=== PATIENT | female | born 1980 | race Caucasian/White ===

== ENCOUNTER → 2017-01-08 | Outpatient (CLI) | payer SELFPAY | END | disposition home or self-care (01) | LOC: LAB.O 12:49 | PROVIDERS: ATTEND Surgery | DX: R79.9 Abnormal finding of blood chemistry, unspecified (principal) ==

== ENCOUNTER 2018-10-21 05:52 | Emergency (ER) | payer SELFPAY ==
--- NOTE | 2018-10-21 06:39 | ED.PDOC ---
History of Present Illness - General Source: patient Exam Limitations: no limitations - History of Present Illness Initial Comments: the patient is a 38-year-old female presenting to the emergency room secondary to lower abdominal cramping and burning with urination. This sensation has been strongest just over the last 12 hours. She did have some mild discomfort for last couple of days. The cramping even radiates to her back when she is urinating. the worst of this pain radiates to her left flank. She does appear to have some mild left costovertebral angle tenderness. She has not had a tubal ligation. She is and sexually active. She reports that her period ended approximately 2 days ago but she's had a small amount of pink spotting since the period essentially ended which is unusual. No definite fevers. No recurrent yeast or urinary tract infections in the past. Timing/Duration: unsure Improving Factors: nothing Worsening Factors: nothing Associated Symptoms: denies symptoms <Omari Olvera - Last Filed: 10/21/18 06:36> <Dino Cardenas - Last Filed: 10/21/18 07:53> - General Time Seen by Provider: 10/21/18 06:12 - History of Present Illness Allergies/Adverse Reactions: Allergies NO KNOWN ALLERGY Allergy (Verified 10/21/18 06:41) Home Medications: Ambulatory Orders Phenazopyridine HCl [Pyridium] 200 mg PO TID #7 tab 10/21/18 levoFLOXacin [Levaquin] 500 mg PO DAILY #10 tab 10/21/18 Review of Systems - Review of Systems Constitutional: States: no symptoms reported EENTM: States: no symptoms reported Respiratory: States: no symptoms reported Cardiology: States: no symptoms reported Gastrointestinal/Abdominal: States: abdominal pain Genitourinary: States: dysuria, frequency, pain Musculoskeletal: States: back pain Skin: States: no symptoms reported Neurological: States: no symptoms reported Endocrine: States: no symptoms reported All other Systems: No Change from Baseline <Omari Olvera - Last Filed: 10/21/18 06:36> Physical Exam - Physical Exam General Appearance: Alert, No apparent distress Eye Exam: bilateral normal Ears, Nose, Throat: hearing grossly normal, normal pharynx Respiratory: no respiratory distress, no accessory muscle use Cardiovascular/Chest: normal peripheral pulses, no edema, other - regular rate Peripheral Pulses: radial,right: 2+, radial,left: 2+ Gastrointestinal/Abdominal: other - she does havesuprapubic discomfort palpation. No definite palpable mass. 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 Urinalysis and urine hCG has been ordered to start the workup. <Omari Olvera - Last Filed: 10/21/18 06:36> - Results/Orders Results/Orders: 10/21/18 06:31 URINE CULTURE W/COLONY COUNT Stat 10/21/18 06:53 KUB [RAD] Stat 10/21/18 07:08 Abdoment/Pelvis w/o Contrast [CT] Stat Laboratory Results - last 24 hr 10/21/18 10/21/18 06:31 06:31 Urine Color Yellow Urine Appearance Cloudy Urine pH 6.5 Ur Specific Mobile >= 1.030 Urine Protein 100 H Urine Glucose (UA) Negative Urine Ketones Negative Urine Blood Large H Urine Nitrite Negative Urine Bilirubin Negative Urine Urobilinogen 1.0 Ur Leukocyte Esterase Small H Urine RBC Tntc H Urine WBC Tntc H Ur Epithelial Cells Obscured by rbc's Urine Bacteria 2+ H Urine HCG, Qual Negative CT ABDOMEN AND PELVIS, 5 MM NON-OBSTRUCTING STONE ON THE LEFT KIDNEY. <Dino Cardenas - Last Filed: 10/21/18 07:53> Departure <Omari Olvera - Last Filed: 10/21/18 06:36> - Departure Time of Disposition: 07:48 <Dino Cardenas - Last Filed: 10/21/18 07:53> - Departure Clinical Impression: Dysuria Urinary tract infection Qualifiers: Urinary tract infection type: acute cystitis Hematuria presence: with hematuria Qualified Code(s): N30.01 - Acute cystitis with hematuria Condition: Good Instructions: DI for Urinary Tract Infection (UTI) Referrals: TANI NARANJO,LULU Ann [Primary Care Provider] - 1-2 Weeks Prescriptions: levoFLOXacin [Levaquin] 500 mg PO DAILY #10 tab Phenazopyridine HCl [Pyridium] 200 mg PO TID #7 tab Home Medications: Ambulatory Orders Phenazopyridine HCl [Pyridium] 200 mg PO TID #7 tab 10/21/18 levoFLOXacin [Levaquin] 500 mg PO DAILY #10 tab 10/21/18
[2018-10-21] MEDS ORDERED: IBUPROFEN 200 MG TAB PO ONE (06:54)
--- NOTE | 2018-10-21 07:11 | RAD ---
ABDOMEN. 10/21/2018. HISTORY: Dysuria. Left flank pain. COMPARISON: None. TECHNIQUE: AP abdomen. FINDINGS: There is a 2 mm calcified density in the region of the inferior pole of left kidney. There is a phlebolith in the left hemipelvis. Bowel gas pattern appears normal. Mild scattered colonic stool. No free air. There are surgical clips noted in the left upper abdomen. Unremarkable bony structures. IMPRESSION: 1. 2 mm calcification projecting over the inferior pole of the left kidney suspicious for nephrolith. Electronically signed by: Jacinda Yip DO 10/21/2018 7:10 AM [facility]
--- NOTE | 2018-10-21 07:33 | CT ---
CT ABDOMEN AND PELVIS WITHOUT CONTRAST. 10/21/2018 CLINICAL HISTORY: Left flank pain with hematuria. COMPARISON: CT abdomen and pelvis without contrast 11/26/2009. TECHNIQUE: Axial [address] imaging of the abdomen and pelvis. Reformatted coronal and sagittal images reviewed. Examination was performed according to our departmental dose-optimization program, which includes automated exposure control, adjustment of the mA and/or kV according to patient size and/or use of iterative reconstruction technique. FINDINGS: LOWER THORAX: The lung bases. Normal cardiac size. ABDOMEN: LIVER/GALLBLADDER: Normal liver size, contour, and attenuation. No liver mass or intrahepatic biliary dilatation. Normal gallbladder. Common bile duct is dilated to 1 cm. No obstructing stone or mass. SPLEEN/PANCREAS: Normal spleen. Normal pancreas. KIDNEYS/ADRENAL GLANDS: Normal adrenal glands. Normal right kidney. There is a 5 mm nonobstructing stone within the inferior pelvis of the left kidney. No hydronephrosis. No perinephric edema. RETROPERITONEAL VESSELS/NODES: Normal aorta and inferior vena cava caliber. No adenopathy. BOWEL: Evidence of previous gastric bypass. Small bowel loops are normal in caliber. Normal appendix in the right lower quadrant. Moderate stool within the ascending and transverse colon. No evidence of colitis. MESENTERY/PERITONEUM: There are a few minimally enlarged right lower quadrant lymph nodes up to 9 mm in short axis. No ascites. No free air. PELVIS: BLADDER: Unremarkable bladder. GENITAL ORGANS: Anteverted uterus appears normal. Minimal endometrial fluid. Normal ovaries. PERITONEUM: No pelvic free fluid. No pelvic adenopathy. BONES AND SOFT TISSUES: Normal lumbar alignment. Vertebral body height is within normal limits. Degenerative disc narrowing at L5-S1 with mild endplate degenerative bony hypertrophy. Intact bony pelvis. Normal hips. Unremarkable soft tissues. IMPRESSION: 1. Nonobstructing 5 mm inferior left renal pelvic stone. No hydronephrosis. 2. Status post gastric bypass without complication. 3. Mild common bile duct dilatation with no obstructing stone or mass.. Electronically signed by: Jacinda Yip DO 10/21/2018 7:32 AM [employer]
[2018-10-21] MEDS ORDERED: cefTRIAXone SODIUM 1 GM VIAL IM ONE (07:49)
[2018-10-21] MEDS ORDERED: LIDOCAINE 1% 10 ML VIAL INJ ONE (07:54)
[2018-10-21 08:05] VITALS: O2SAT 99
[2018-10-21 08:07] VITALS: BP 110/70; TEMP 98
== END 2018-10-21 08:06 | disposition home or self-care (01) ==
LOC: ER 05:52
DX: N30.01 Acute cystitis with hematuria (principal); N20.0 Calculus of kidney
CPT/HCPCS: 74018; 74176; 81001; 81025; 87086; J0696